=== PATIENT | female | born 1965 | race Caucasian/White ===

== ENCOUNTER 2021-05-13 17:39 | Observation (INO) | payer OTHER ==
[2021-05-13 18:16] VITALS: TEMP 98.7; BMI 34.0
[2021-05-13] MEDS ORDERED: FAMOTIDINE 20 MG/50 ML IVPB 20 MG/50 ML MG IVPB ONE ×2 (20:17→21:59)
[2021-05-13] MEDS ORDERED: MAG HYDROX/AL HYDROX/SIMETH 30 ML UNIT-DOSE CUP PO ONE (20:17)
[2021-05-13] MEDS ORDERED: ONDANSETRON 4 MG/2 ML VIAL IVPB ONE (20:17)
[2021-05-13] MEDS ORDERED: ACETAMINOPHEN 1000 MG/100 ML VIAL IVPB ONE (20:17)
[2021-05-13 21:57] LABS: BASO % 0.7 % (0-2.0); EOS % 2.1 % (0-4.5); HEMATOCRIT 35.9 % (32.4-45.2); HEMOGLOBIN 12.1 GM/dL (10.7-15.3); LYMPH % 20.8 % (8-40); MCH 30.1 pg (25.7-33.7); MCHC 33.6 g/dl (32.0-36.0); MEAN CELL VOLUME 89.6 fl (80-96); MEAN PLT VOLUME 6.8 fl (7.5-11.1); MONO % 9.6 % (3.8-10.2); NEUT % 66.8 % (42.8-82.8); PLATELET COUNT 414 10^3/uL (134-434); RBC 4.01 M/mm3 (3.60-5.2); RDW 12.6 % (11.6-15.6); WHITE BLOOD COUNT 7.9 K/mm3 (4.0-10.0)
[2021-05-13] MEDS ORDERED: ACETAMINOPHEN INJECTION 100 ML IVPB ONE (21:58)
[2021-05-13] MEDS ORDERED: MAG HYDROX/AL HYDROX/SIMETH 30 ML UNIT-DOSE CUP ONE (21:58)
[2021-05-13] MEDS ORDERED: ONDANSETRON 4 MG/2 ML VIAL ONE (21:59)
[2021-05-13] MEDS ORDERED: SODIUM CHLORIDE 0.9% 500 ML INFUS.BAG IV ONE (22:00)
[2021-05-13 22:05] LABS: INR 1.1 (0.83-1.09); PROTHROMBIN TIME (PATIENT) 12.9 SEC (9.7-13.0)
[2021-05-13 22:08] LABS: ACTIVATED PTT 28.1 SECONDS (25.2-36.5)
[2021-05-13 22:12] LABS: CHLORIDE 104 mmol/L (98-107); SODIUM 139 mmol/L (136-145)
[2021-05-13 22:15] LABS: ANION GAP 9 MMOL/L (8-16); CALCIUM 9.4 mg/dL (8.5-10.1); CO2 26 mmol/L (21-32)
[2021-05-13 22:16] LABS: ALBUMIN 4.3 g/dl (3.4-5.0); GLUCOSE,RANDOM 112 mg/dL (74-106); LIPASE 193 U/L (73-393)
[2021-05-13 22:18] LABS: SGPT/ALT 24 U/L (13-61)
[2021-05-13 22:19] LABS: CREATININE 0.7 mg/dL (0.55-1.3); SGOT/AST 16 U/L (15-37)
[2021-05-13 22:20] LABS: BILIRUBIN,TOTAL 0.5 mg/dL (0.2-1); TOT PROT 7.9 g/dl (6.4-8.2)
[2021-05-13 22:21] LABS: ALK PHOS 89 U/L (45-117)
[2021-05-13 22:41] LABS: EPI CELLS 2 /uL (0-25.1); HYALINE CASTS 2 /uL (0-3.1); URINE APPEARANCE CLEAR; URINE BACTERIA >9,000 /uL (0-1359); URINE BILIRUBIN NEGATIVE (NEGATIVE); URINE COLOR YELLOW; URINE GLUCOSE (UA) NEGATIVE (NEGATIVE); URINE KETONE NEGATIVE (NEGATIVE); URINE LEUK ESTERASE 2+ (NEGATIVE); URINE NITRITE POSITIVE (NEGATIVE); URINE PROTEIN NEGATIVE (NEGATIVE); URINE RBC 10 /uL (0-23.9); URINE WBC 181 /uL (0-25.8)
[2021-05-13] MEDS ORDERED: POTASSIUM CHLORIDE ORAL LIQUID 20 MEQ/15 ML PO ONE (22:41)
[2021-05-13] MEDS ORDERED: CEFTRIAXONE 1,000 MG in DEXTROSE 5%-WATER - 50 ML IVPB ONE (23:38)
[2021-05-13] MEDS ORDERED: CEFTRIAXONE 1 GM/50 ML BAG ONE (23:49)
[2021-05-13] MEDS ORDERED: POTASSIUM CHLORIDE TABS 20 MEQ TABLET.ER (FP) PO ONE (23:49)
[2021-05-14] MEDS ORDERED: POTASSIUM CHLORIDE TABS 20 MEQ TABLET.ER (FP) PO ONE (00:11)
[2021-05-14 08:50] VITALS: BP 129/86; PULSE 93
== END 2021-05-14 05:15 | disposition home or self-care (01) ==
LOC: JER 17:39 → JERBED 05-14 00:58
PROC: 3E0337Z Introduction of Electrolytic and Water Balance Substance into Peripheral Vein, Percutaneous Approach (ICD-10-PCS; principal; 2021-05-14)
PROC: 3E033NZ Introduction of Analgesics, Hypnotics, Sedatives into Peripheral Vein, Percutaneous Approach (ICD-10-PCS; 2021-05-14)
PROC: 3E03329 Introduction of Other Anti-infective into Peripheral Vein, Percutaneous Approach (ICD-10-PCS; 2021-05-14)
DX: K21.9 Gastro-esophageal reflux disease without esophagitis (principal); I10 Essential (primary) hypertension; R07.9 Chest pain, unspecified; R11.2 Nausea with vomiting, unspecified; M54.9 Dorsalgia, unspecified; G03.0 Nonpyogenic meningitis; H54.62 Unqualified visual loss, left eye, normal vision right eye; A04.8 Other specified bacterial intestinal infections; K59.00 Constipation, unspecified
CPT/HCPCS: 36415; 71046-TC-FY; 74177-TC; 80053; 81003; 82550; 83605; 83690; 84484; 85025; 85610; 85730; 86850; 86900; 86901; 87086; 87186; 93005; 93010; 96365; 96367; 96375; 99285-25; C9803; G0378; J0131; Q9967; U0003; U0005